=== PATIENT | female | born 1990 | race Caucasian/White ===

== ENCOUNTER 2021-02-15 13:08 | Outpatient (CLI) | payer OTHER ==
[2021-02-16 05:52] LABS: SARS-CoV-2 PCR by NAA Not Detected (NotDetected)
== END 2021-02-15 13:09 | disposition home or self-care (01) ==
LOC: CSHLAB 13:08
PROVIDERS: ATTEND Obstetrics & Gynecology
DX: Z20.822 Contact with and (suspected) exposure to COVID-19 (principal)
CPT/HCPCS: 87635; U0003; U0005

== ENCOUNTER 2021-02-18 05:30 | Inpatient (IN) | payer OTHER ==
[2021-02-18] MEDS: Lactated Ringer's 1,000 ML IV SCH ×3 (11:22→17:52)
[2021-02-18] MEDS ORDERED: Lidocaine 1% (PF) 30 ML VIAL SC PRN (12:18)
[2021-02-18] MEDS ORDERED: Ibuprofen 800 MG TAB PO PRN (12:18)
[2021-02-18] MEDS ORDERED: NS / Oxytocin 40 units/1000ml 1,000 ML IV PRN (12:18)
[2021-02-18] MEDS ORDERED: HYDROcodone/Acetaminophen 5/325 mg Tablet PO PRN ×2 (12:18)
[2021-02-18] MEDS ORDERED: hydrALAZINE 20 MG/ML VIAL SLOW IVP PRN (12:18)
[2021-02-18] MEDS ORDERED: Butorphanol Tartrate 1 MG/ML VIAL SLOW IVP PRN (12:18)
[2021-02-18] MEDS ORDERED: Promethazine HCl 25 MG/ML VIAL IM PRN ×2 (12:18→15:25)
[2021-02-18] MEDS ORDERED: Ondansetron PF 4 MG/2 ML Vial IVP PRN (12:18)
[2021-02-18 12:22] VITALS: BMI 28.0
[2021-02-18 12:37] LABS: Hemoglobin 12.2 g/dL (12.0-15.5); Mean Corpuscular HGB CONC 35.9 g/dL (32.0-36.0); Mean Corpuscular Hemoglobin 32.8 pg (27.0-33.0); Mean Corpuscular Volume 91.4 fl (81.6-98.3); Mean Platelet Volume 10.8 fl (7.4-10.4); RBC Distribution Width 13.2 % (11.5-14.5); Red Blood Cell (RBC) Count 3.72 10x6/uL (3.90-5.03); White Blood Cell (WBC) Count 11.3 10x3/uL (3.5-10.5)
[2021-02-18] MEDS ORDERED: NS w/ Oxytocin 30 units 500 ML ONE (12:38)
[2021-02-18 12:58] LABS: Hep B Surf Ag Non-Reactive S/CO (NonReactive)
[2021-02-18 12:59] LABS: Syphilis Antibody Nonreactive (Nonreactive); Syphilis Antibody Index 0.07 S/CO (<1.00 Non-Reactive)
[2021-02-18 13:01] LABS: HBSAg Index 0.13 S/CO (0-0.99)
[2021-02-18 13:08] LABS: Platelet Count 130 10x3/uL (150-450)
[2021-02-18] MEDS ORDERED: Fentanyl 4 mcg/Bup 0.1% Cadd 100 ML ONE ×2 (14:43→22:26)
[2021-02-18] MEDS: Fentanyl 4 mcg/Bupivacaine 0.1% Cassette 100 ML EPIDURAL SCH ×2 (14:58→22:29)
[2021-02-18] MEDS ORDERED: diphenhydrAMINE 50 MG/ML VIAL IVP PRN (15:25)
[2021-02-18] MEDS ORDERED: Naloxone HCl 0.4 mg/ml Vial IVP PRN ×2 (15:25)
[2021-02-18] MEDS ORDERED: Eucerin (Mineral Oil/Petrolatum,White) 30 gm Jar TOP PRN (15:25)
[2021-02-18] MEDS ORDERED: Lactated Ringer's 500 ML IV PRN (15:25)
[2021-02-18] MEDS ORDERED: Acetaminophen 325 MG TAB PO PRN (15:25)
[2021-02-18] MEDS ORDERED: ePHEDrine 50 MG/ML VIAL SLOW IVP PRN (15:25)
[2021-02-18] MEDS ORDERED: Communication Order-Pharmacy FS SCH (15:30)
[2021-02-18] MEDS: Ondansetron PF 4 MG/2 ML Vial IVP PRN (17:42)
[2021-02-19] MEDS ORDERED: Ondansetron PF 4 MG/2 ML Vial ONE (03:08)
[2021-02-19] MEDS ORDERED: NS w/ Oxytocin 30 units 500 ML ONE (03:10)
[2021-02-19] MEDS: Ondansetron PF 4 MG/2 ML Vial IVP PRN (03:11)
[2021-02-19] MEDS: Lactated Ringer's 1,000 ML IV SCH (03:11)
[2021-02-19] MEDS ORDERED: Lanolin Ointment 7 GM TUBE TOP PRN (06:39)
[2021-02-19] MEDS ORDERED: Milk Of Magnesia 30 ML UDCUP PO PRN (06:39)
[2021-02-19] MEDS ORDERED: Ondansetron PF 4 MG/2 ML Vial IVP PRN (06:39)
[2021-02-19] MEDS ORDERED: Adacel (T-DAP) 0.5 ML SYRINGE IM ONE (06:39)
[2021-02-19] MEDS ORDERED: diphenhydrAMINE 25 MG CAP PO PRN (06:39)
[2021-02-19] MEDS ORDERED: Benzocaine-Menthol 82.5 ML CAN TOP PRN (06:39)
[2021-02-19] MEDS ORDERED: Preparation H Ointment 28 GM TUBE PR PRN (06:39)
[2021-02-19] MEDS ORDERED: hydrALAZINE 20 MG/ML VIAL SLOW IVP PRN (06:39)
[2021-02-19] MEDS ORDERED: HYDROcodone/Acetaminophen 5/325 mg Tablet PO PRN ×2 (06:39)
[2021-02-19] MEDS ORDERED: Bisacodyl 10 MG SUPP PR PRN (06:39)
[2021-02-19] MEDS ORDERED: NS w/ Oxytocin 30 units 500 ML IVPB SCH (07:00)
[2021-02-19] MEDS ORDERED: Ibuprofen 800 MG TAB PO SCH ×2 (07:45→14:00)
[2021-02-19] MEDS: Docusate Calcium (SURFAK) 240 MG CAP PO SCH ×2 (09:01→21:54)
[2021-02-19] MEDS: Prenatal Vitamin 1 TAB PO SCH (09:01)
[2021-02-19] MEDS: Ferrous Sulfate 325 MG TAB PO SCH ×2 (09:02→15:26)
[2021-02-19] MEDS: Ibuprofen 800 MG TAB PO SCH ×2 (16:19→21:54)
[2021-02-19] MEDS ORDERED: Bupivacaine PF 0.5% 30 ML VIAL ONE (19:42)
[2021-02-19] MEDS ORDERED: ePHEDrine Sulfate 50 MG/10 ML VIAL ONE (19:42)
[2021-02-19] MEDS ORDERED: Bupivacaine 0.25% HCL 30 ML VIAL ONE (19:42)
[2021-02-20 05:01] VITALS: TEMP 98.2
[2021-02-20] MEDS: Ibuprofen 800 MG TAB PO SCH ×2 (06:13→13:30)
[2021-02-20 07:56] VITALS: BP 122/64
[2021-02-20] MEDS: Docusate Calcium (SURFAK) 240 MG CAP PO SCH (08:10)
[2021-02-20] MEDS: Prenatal Vitamin 1 TAB PO SCH (08:10)
[2021-02-20] MEDS: Ferrous Sulfate 325 MG TAB PO SCH (15:38)
== END 2021-02-20 14:25 | disposition home or self-care (01) | DRG 807 ==
LOC: CSHLD 10:02 → CSHPP 02-19 09:04
PROVIDERS: ADMIT Obstetrics & Gynecology; ATTEND Obstetrics & Gynecology
PROC: 10E0XZZ Delivery of Products of Conception, External Approach (ICD-10-PCS; principal; 2021-02-19)
PROC: 0HQ9XZZ Repair Perineum Skin, External Approach (ICD-10-PCS; 2021-02-19)
PROC: 10907ZC Drainage of Amniotic Fluid, Therapeutic from Products of Conception, Via Natural or Artificial Opening (ICD-10-PCS; 2021-02-19)
PROC: 3E033VJ Introduction of Other Hormone into Peripheral Vein, Percutaneous Approach (ICD-10-PCS; 2021-02-19)
PROC: 10H07YZ Insertion of Other Device into Products of Conception, Via Natural or Artificial Opening (ICD-10-PCS; 2021-02-19)
DX: O66.0 Obstructed labor due to shoulder dystocia (principal); Z37.0 Single live birth; O70.1 Second degree perineal laceration during delivery; Z3A.40 40 weeks gestation of pregnancy; Z20.822 Contact with and (suspected) exposure to COVID-19
CPT/HCPCS: 51702; 85027; 86780; 86850; 86900; 86901; 87340; 87635; J2405; J2590; S0020; U0003; U0005